=== PATIENT | male | born 1995 | race African-American/Black ===

== ENCOUNTER 2018-07-10 21:45 | Emergency (ER) | payer SELFPAY ==
[~2018-07-10] VITALS: Ht 177.8 cm; Wt 78.8 kg
[2018-07-10 21:47] VITALS: BP 132/78
[2018-07-10] MEDS ORDERED: LIDOCAINE-MPF 1%, 5ML ONE (21:55)
[2018-07-10] MEDS ORDERED: DIPH,PERTUSS(ACELL),TET VAC/PF 0.5 ML IM-VACC ONE ×2 (22:00→22:26)
[2018-07-10] MEDS ORDERED: LIDOCAINE 1%, 2ML INFIL ONE (22:00)
--- NOTE | 2018-07-10 22:30 | NUR ---
PT SUTURED AT BS BY ERP. PT EDUCATED ON F/U AND SUTURE REMOVAL INSTRUCTIONS AND VERBALIZES UNDERSTANDING. PT VACCINATED WITH TDAP. PT QUESTIONS ANSWERED. AWAITING BACITRACIN DRESSING BY TECH PRIOR TO D/C.
--- NOTE | 2018-07-10 22:35 | NUR ---
PT AMBULATES TO REGISTRATION DESK WITH STEADY GAIT FOR D/C HOME.
== END 2018-07-10 22:37 | disposition home or self-care (01) ==
LOC: ED 22:15
DX: S01.112A Laceration without foreign body of left eyelid and periocular area, initial encounter (principal); W21.05XA Struck by basketball, initial encounter; Y93.67 Activity, basketball; Y92.39 Other specified sports and athletic area as the place of occurrence of the external cause; Y99.8 Other external cause status
CPT/HCPCS: 12051; 90471; 90715